=== PATIENT | male | born 1975 | race Caucasian/White ===

== ENCOUNTER 2022-10-09 14:33 | Emergency (ER) | payer MEDICAID ==
[~2022-10-09] VITALS: Ht 188 cm; Wt 174.4 kg
[2022-10-09 14:47] VITALS: BP 144/84
[2022-10-09] MEDS ORDERED: CYCL-1 PO (15:29)
[2022-10-09] MEDS ORDERED: IBUP-1986 PO (15:29)
[2022-10-09] MEDS ORDERED: LIDO-12 TOP (15:29)
== END 2022-10-09 15:37 | disposition home or self-care (01) ==
LOC: ER 14:34
DX: M54.50 Low back pain, unspecified (principal); F17.200 Nicotine dependence, unspecified, uncomplicated; Z88.8 Allergy status to other drugs, medicaments and biological substances
CPT/HCPCS: 99283